=== PATIENT | male | born 2000 | race Caucasian/White ===

== ENCOUNTER 2020-12-20 15:07 | Emergency (ER) | payer OTHER ==
[2020-12-20 16:00] LABS: Anion Gap 25 mmol/L (10-20); BUN (Urea Nitrogen) 12 mg/dL (8.9-20.6); Calc. Creatinine Clearance 0 mL/min (70-130); Calcium 9.9 mg/dL (7.8-10.44); Carbon Dioxide 20 mmol/L (22-29); Chloride 97 mmol/L (98-107); Glucose 107 mg/dL (70-105); Potassium 3.6 mmol/L (3.5-5.1); Sodium 138 mmol/L (136-145)
== END 2020-12-20 17:55 | disposition home or self-care (01) ==
LOC: CSHERS 15:07
DX: R56.9 Unspecified convulsions (principal)
CPT/HCPCS: 36416; 70450; 80048